=== PATIENT | male | born 1950 | race American Indian/Alaskan Native ===

== ENCOUNTER 2017-10-19 12:02 | Emergency (ER) | payer MEDICARE, OTHER ==
[2017-10-19] MEDS ORDERED: MOTRIN PO ONE (14:06)
[2017-10-19] MEDS ORDERED: FLEXERIL PO ONE (14:06)
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
[2017-10-19 15:09] VITALS: BP 150/94
== END 2017-10-19 15:09 | disposition home or self-care (01) ==
LOC: ED 12:02
DX: M79.1 Myalgia (principal); M25.511 Pain in right shoulder; M54.2 Cervicalgia; V49.49XA Driver injured in collision with other motor vehicles in traffic accident, initial encounter; Y93.89 Activity, other specified; Y92.89 Other specified places as the place of occurrence of the external cause; Y99.8 Other external cause status
CPT/HCPCS: 99282